=== PATIENT | male | born 1985 | race Caucasian/White ===

== ENCOUNTER 2016-10-08 08:44 | Emergency (ER) | payer OTHER ==
[2016-10-08 09:13] VITALS: O2SAT 96
[2016-10-08] MEDS ORDERED: IPRATROPIUM/ALBUTEROL 3 ML DEYVIAL IH ONE (09:32)
[2016-10-08] MEDS ORDERED: predniSONE 20 MG TAB PO ONE (09:32)
--- NOTE | 2016-10-08 10:16 | UCPHY ---
H & P Time Seen by Provider: 10/08/16 09:32 Patient Type: New HPI/ROS: HPI Asthma exacerbation. 30-year-old male by private vehicle. This patient was at work. He was using a soldering gun. The fumes from this came up and he breathed them in. This set off his asthma. He presented with wheezing and shortness of breath and cough without significant relief from his Proventil inhaler. ROS: Constitutional: No fever, no chills. No weakness. Eyes: No discharge. No changes in vision. ENT: No sore throat. No nasal congestion or rhinorrhea. Respiratory: As above. Cardiac: No chest pain, no palpitations. Neurological: No headache. No focal weakness or altered sensation. Past medical history: Asthma. Social history: Here by himself. Physical Exam: General Appearance: Alert, no distress. This patient is responding to questions appropriately and in full sentences. This patient appears well- hydrated and well-nourished. Eyes: Pupils equal and round no pallor or injection. No lid edema, erythema or injection. Respiratory: There are no retractions, no tachypnea, diffuse wheezing mostly on exhalation throughout his lung santos. Cardiovascular: Regular rate and rhythm. No murmur. Neurological: Motor sensory function is grossly intact. Cranial nerves are normal. Gait is normal. Skin: Warm and dry, no rashes. Psychiatric: No agitation. No depression. Database: EKG: Imaging: Procedures: Emergency department course: After my initial evaluation, the patient was given to, albuterol/Atrovent nebulizer treatments [id number]. He was given 80 mg of oral prednisone. 10:15 a.m., patient re-evaluated. Resting comfortably at this time. Room air pulse oximetry is 98%. He states that he feels much better. Repeat pulmonary exam he is clear on auscultation bilaterally with excellent air movement. No tachypnea. He feels comfortable going home and I feel he is safe for discharge. Follow-up and return to emergency department precautions have been discussed with him. He will prescribe a short course of prednisone without taper. He has a Proventil inhaler but I will provide him with prescriptions for additional units as needed. All of his questions were answered. He was discharged in good condition. Differential Diagnosis: The differential diagnosis on this patient includes but is not limited to asthma exacerbation, reactive airway disease, bronchitis. Serious bacterial infection unlikely. This represents a partial list of diagnoses considered. These considerations are based on history, physical exam, past history, reassessment and diagnostic testing. Smoking Status: Never smoked Constitutional: Initial Vital Signs Temperature (C) 36.8 C 10/08/16 09:08 Heart Rate 73 10/08/16 09:08 Respiratory Rate 16 10/08/16 09:08 Blood Pressure 149/88 H 10/08/16 09:08 O2 Sat (%) 96 10/08/16 09:08 O2 Delivery Mode Room Air Allergies/Adverse Reactions: No Known Allergies Allergy (Unverified 10/08/16 09:13) Home Medications: Medication Instructions Recorded Albuterol [Proventil Inhaler HFA 2 puffs IH Q2-4PRN PRN #1 mdi 10/08/16 (*)] Jasmyn Allergy 10/08/16 Ventolin Hfa Inhaler 10/08/16 predniSONE [prednisone 20mg (RX)] 60 mg PO DAILY #9 tab 10/08/16 Medical Decision Making - Data Points Medications Given: Discontinued Medications Albuterol/Ipratropium (Duoneb) 6 ml IH EDNOW ONE Stop: 10/08/16 09:33 Last Admin: 10/08/16 09:45 Dose: 6 ml Prednisone (Prednisone) 80 mg PO EDNOW ONE Stop: 10/08/16 09:33 Last Admin: 10/08/16 09:45 Dose: 80 mg Departure - Departure Disposition: Home, Routine, Self-Care Clinical Impression: Exacerbation of asthma Condition: Good Instructions: Bronchospasm (ED), How to Use a Nebulizer (ED) Additional Instructions: Read and follow provided instructions. Follow-up with your primary care physician in 1-2 days for re-evaluation. Take medication as prescribed. Return to the emergency department for worsening shortness of breath, cough, wheezing or other serious concerns. Referrals: NONE *PRIMARY CARE P,. [Primary Care Provider] - As per Instructions Prescriptions: Albuterol [Proventil Inhaler HFA (*)] 2 puffs IH Q2-4PRN PRN #1 mdi PRN Reason: Sob/Dyspnea predniSONE [prednisone 20mg (RX)] 60 mg PO DAILY #9 tab - PQRS PQRS Measurement: Not applicable.
[2016-10-08 10:26] VITALS: BP 138/67; PULSE 89; RESP 20; TEMP 98.6
== END 2016-10-08 10:27 | disposition home or self-care (01) ==
LOC: CED 08:44
DX: J45.909 Unspecified asthma, uncomplicated (principal)
CPT/HCPCS: G0463-PO